=== PATIENT | female | born 1935 | race Asian ===

== ENCOUNTER 2017-07-10 11:52 | Inpatient (IN) | payer OTHER ==
[~2017-07-10] VITALS: Ht 157.5 cm; Wt 62.9 kg
[~2017-07-10 11:52] MED LIST: AMLO-147 PO; ASPI81TA50 PO; BENA20TA48 PO; ESOM40CA PO; GABA300C PO; HYDR-3672 PO; IBUP-1542 PO; LEVO88TA3 PO; VALS160T20 PO
[2017-07-10] MEDS ORDERED: ONDANSETRON 4 MG INJ IV STA (12:22)
[2017-07-10] MEDS ORDERED: CEFEPIME 2GM/50 ML (PMX) 50 ML IVPB STA (12:22)
[2017-07-10] MEDS ORDERED: SOD CHLORIDE 0.9% 1,000 ML IV ONE ×3 (12:30→18:00)
[2017-07-10] MEDS ORDERED: morphine 2 MG INJ IV ONE (12:30)
[2017-07-10] MEDS ORDERED: FURO40TA4 PO (12:46)
[2017-07-10] MEDS ORDERED: ATEN-51 PO (12:46)
[2017-07-10] MEDS ORDERED: BENA40TA41 PO (12:47)
[2017-07-10] MEDS ORDERED: VALS1TAB78 PO (12:48)
[2017-07-10] MEDS ORDERED: FURO-109 PO (12:48)
[2017-07-10 13:10] LABS: INR 0.91; PROTIME 12.3 Sec (12.2-14.2)
[2017-07-10 13:11] LABS: PARTIAL THROMBOPLASTIN TIME 29.4 Sec (25.0-35.0)
[2017-07-10 13:13] LABS: ALANINE AMINOTRANSFERASE 45 IU/L (13-69); ALBUMIN 4.1 g/dl (3.3-4.9); ALBUMIN/GLOBULIN RATIO 1.28; ALKALINE PHOSPHATASE 52 IU/L (42-121); ANION GAP 14 (8-16); ASPARTATE AMINO TRANSFERASE 75 IU/L (15-46); BILIRUBIN,INDIRECT 0.3 mg/dl (0-1.1); BILIRUBIN,TOTAL 0.3 mg/dl (0.2-1.3); BLOOD UREA NITROGEN 14 mg/dl (7-20); CARBON DIOXIDE 21 mmol/L (21-31); CHLORIDE 74 mmol/L (97-110); CREATININE 0.83 mg/dl (0.44-1.00); GLUCOSE 129 mg/dl (70-220); POTASSIUM 3.9 mmol/L (3.5-5.1); TOTAL PROTEIN 7.3 g/dl (6.1-8.1)
[2017-07-10 13:17] LABS: ABNORMAL IP MESSAGE 1; BASOPHILS % 0.1 % (0.0-2.0); EOSINOPHILS % 0.1 % (0.0-7.0); HEMATOCRIT 33.1 % (37.0-47.0); HEMOGLOBIN 12.1 g/dl (12.0-16.0); LYMPHOCYTES # 1.1 10^3/ul (0.8-2.9); LYMPHOCYTES % 6.1 % (15.0-51.0); MEAN CORPUSCULAR HGB CONC 36.6 g/dl (32.0-37.0); MEAN CORPUSCULAR VOLUME 82.1 fl (82.0-101.0); MEAN PLATELET VOLUME 9.5 fl (7.4-10.4); MONOCYTE # 1.9 10^3/ul (0.3-0.9); MONOCYTES % 10.6 % (0.0-11.0); NEUTROPHILS % 81.9 % (39.0-77.0); PLATELET COUNT 440 10^3/UL (140-415); RED BLOOD COUNT 4.03 10^6/ul (4.20-5.40); RED CELL DISTRIBUTION WIDTH 12.6 % (11.5-14.5)
[2017-07-10 13:19] LABS: SODIUM 105 mmol/L (135-144)
[2017-07-10 13:20] LABS: CREATINE KINASE 2059 IU/L (23-200); POSITIVE DIFF @See below
[2017-07-10 13:25] LABS: TROPONIN-I < 0.012 ng/ml (0.00-0.12)
--- NOTE | 2017-07-10 14:09 | RADRPT ---
PROCEDURE: XR Thoracic Spine. CLINICAL INDICATION: Back Pain. Fall. TECHNIQUE: AP and lateral views of the thoracic spine are available for review COMPARISON: None available FINDINGS: No acute fracture or dislocation is seen. The alignment is normal. The vertebral body heights are preserved. Mild intervertebral disc space narrowing throughout the thoracic spine. The normal thoracic kyphosis is present. No radiopaque foreign body is identified. The paraspinous soft tissues are unremarkable. There is 12 degrees dextroscoliosis of mid thoracic spine with apex of curvature at T8. There is atherosclerotic calcification of the aorta. Surgical mila in right upper quadrant suggest previous cholecystectomy. IMPRESSION: 1. No evidence of fracture or dislocation. 2. Mild degenerative disc disease throughout the thoracic spine. 3. Mild dextroscoliosis of the mid thoracic spine. 4. Atherosclerotic calcification of the aorta. RPTAT: QQ .Markos Jefferson MD, Date Time Electronically viewed and signed by .Markos Jefferson MD, on 07/10/2017 14:09 .M/
--- NOTE | 2017-07-10 14:22 | RADRPT ---
PROCEDURE: XR Chest. CLINICAL INDICATION: Chest pain. Fall. TECHNIQUE: Anterior chest x-ray. COMPARISON: 09/24/2014 FINDINGS: There are patchy airspace opacities in right perihilar region right lower lung zone, new compared to previous exam. The lung markings are prominent in the left lung base. Subsegmental atelectasis in the left lung base. The lungs are clear. No pleural effusion identified. There is no evidence of pneumothorax. The heart size is large. There is atherosclerotic calcification of the aorta. The cardiomediastinal silhouette is unremarkable. The soft tissues are normal. No fracture identified. IMPRESSION: 1. Patchy airspace opacity in the right lower lung zone suggesting infiltrate. 2. Subsegmental atelectasis in left lung base. 3. Cardiomegaly. 4. Atherosclerotic calcification of the aorta. 6. No evidence of fracture or pneumothorax. RPTAT: QQ .Markos Jefferson MD, MD Date Time Electronically viewed and signed by .Markos Jefferson MD, on 07/10/2017 14:22 .M/
--- NOTE | 2017-07-10 14:42 | RADRPT ---
PROCEDURE: XR Pelvis. CLINICAL INDICATION: Pain. Fall. TECHNIQUE: Single AP view of the pelvis is submitted for interpretation. COMPARISON: No prior studies are available for comparison. FINDINGS: There is no evidence of acute fracture or dislocation. The hip joints are unremarkable. The sacroiliac joints are unremarkable. No radiopaque foreign body is identified. The osseous mineralization is normal. Atherosclerotic calcifications are noted in the left femoral artery. IMPRESSION: 1. No evidence of fracture or dislocation. 2. Moderate atherosclerotic peripheral vascular disease. RPTAT: QQ .Markos Jefferson MD, MD Date Time Electronically viewed and signed by .Markos Jefferson MD, on 07/10/2017 14:42 .M/
--- NOTE | 2017-07-10 14:53 | RADRPT ---
PROCEDURE: XR Lumbar Spine. CLINICAL INDICATION: Low back pain. Fall. TECHNIQUE: Three views of the lumbar spine are available for review COMPARISON: None available FINDINGS: Anterior wedge deformity at L1 with 25% height loss anteriorly. Incomplete visualization of the cortex of the L3 vertebral body on the left side superiorly with adj acent calcific densities in the soft tissues. This may represent fracture or degenerative osteophyte s. 5 mm retrolisthesis of L2-1 L3. The normal lumbar lordosis is preserved. Surgical clips in right upper quadrant suggest previous cholecystectomy.. The intervertebral disk spaces demonstrate advanced narrowing at L1/L2 and L2/L3. Moderate disc space narrowing at L3/L4. Moderate size anterior osteophyte formations from the inferior endplate of L1 through superior endpl ate of L4. The posterior elements are unremarkable. On the frontal view, there is 10 degrees levoscoliosis of the mid lumbar spine at L2-L4. Moderate atherosclerotic calcification of the aorta. IMPRESSION: 1. Poor visualization of the superior endplate of L3 on the left side with calcific densities in th e adjacent soft tissues. This finding may represent fracture or degenerative osteophytes. Findings c an be further clarified with CT scan of the lumbar spine, if clinically indicated. 2. L1 compression fracture with 25% height loss anteriorly, age indeterminate. 3. Grade 1 retrolisthesis of L2 on L3 and L3 on L4. 4. Moderate atherosclerotic peripheral vascular disease. 5. Advanced degenerative disc disease and enthesopathy in the upper and mid lumbar spine. Previous cholecystectomy. RPTAT: QQ .Markos Jefferson MD, Date Time Electronically viewed and signed by .Markos Jefferson MD, on 07/10/2017 14:53 .M/
--- NOTE | 2017-07-10 15:02 | RADRPT ---
PROCEDURE: CT Brain without contrast. CLINICAL INDICATION: Headaches status post fall and altered mental status TECHNIQUE: A CT of the brain was performed on a GE [employer]ed 64-slice CT scanner utilizing axial imaging from the skull base through the vertex without IV contrast. Multiplanar reformatted images were made. Images were reviewed on a PACS workstation. The CTDIvol is 44.40 mGy and the DLP is 720 .23 mGycm. One of the following 3 does reduction techniques were used during this CT examination: 1) Automated exposure control 2) Adjustment of the mA +/- kV according to patient size or 3) Use of iterative reconstruction technique COMPARISON: None available FINDINGS: There is no intracranial hemorrhage, mass effect, or midline shift. No extra-axial fluid collection is seen. The ventricles and sulci are age appropriate. Mild diffuse volume loss is present. Subtle decreased attenuation is present in the bilateral subcortical white matter, bilateral centrum semiov jose, and bilateral periventricular white matter compatible with moderate chronic microvascular ische maria a disease. Decreased attenuation is present in the bilateral basal ganglia and in the right cerebe llum compatible with small lacunar type infarcts. Vascular calcifications are present of the bilater al intracranial internal carotid arteries and the vertebral basilar arteries. The visualized scalp and calvarium are normal. The orbits are remarkable for bilateral lens replacem ent. The bilateral paranasal sinuses, mastoid air cells and middle ear cavities are clear. IMPRESSION: 1. No evidence of acute intracranial intracranial hemorrhage, infarcts, or acute intracranial patho logy. 2. Moderate chronic microvascular ischemic disease and mild diffuse volume loss. 3. 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 4. Moderate atherosclerotic vascular disease RPTAT: HDC .Heidi Tellez MD, MD Date Time Electronically viewed and signed by .Heidi Tellez MD, MD on 07/10/2017 15:02 .C/
--- NOTE | 2017-07-10 15:06 | RADRPT ---
PROCEDURE: CT cervical spine without contrast. CLINICAL INDICATION: Abdominal Pain TECHNIQUE: CT scan of the cervical spine without contrast was performed and is reconstructed at 1. 25 mm contiguous axial intervals .. The patient was scanned without intravenous contrast. Sagittal and coronal reformatted images were obtained from the axial source images. The calculated radiation dose measures 522 mGy centimeters. The CTDI measures 22 mGy. Individualized dose optimization technique was used for the performance of this exam. This included 1. Automated exposure control. 2. Adjustment of the mA and / or kV according to the patient's size. 3. Use of iterative reconstructed technique. COMPARISON: None. FINDINGS: There is loss of normal lordosis with mild kyphotic deformity centered on C4. No step-off or prevert ebral soft tissue swelling is visualized. Vertebral bodies have normal height. No fracture is identi fied. There is degenerative narrowing of C3-C4, C4-C5 and C5-C6. The disc heights are maintained. Th ere is posterior ridging at an C3-C4. Noted is a central disc herniation at C4-C5 measuring 4 mm in AP diameter. No other disc herniation is present. Pedicles and posterior elements are without eviden ce of fracture. There is multilevel bilateral foraminal stenosis secondary to uncinate process osteo phytes. There is soft tissue hematoma is present. IMPRESSION: Degenerative changes cervical spine as above. Kyphotic deformity centered on C4. No fracture or step -off. .Philip Lea MD, Date Time Electronically viewed and signed by .Philip Lea MD, MD on 07/10/2017 15:06 .A/
[2017-07-10 16:11] LABS: ADD UMIC YES; UR ASCORBIC ACID NEGATIVE (NEGATIVE); UR BILIRUBIN (Dip) NEGATIVE (NEGATIVE); UR BLOOD (Dip) NEGATIVE (NEGATIVE); UR CLARITY CLEAR (CLEAR); UR COLOR YELLOW (YELLOW); UR GLUCOSE (Dip) 1+ mg/dL (NEGATIVE); UR KETONES (Dip) TRACE mg/dL (NEGATIVE); UR LEUKOCYTE ESTERASE (Dip) TRACE Leu/ul (NEGATIVE); UR NITRITE (Dip) NEGATIVE (NEGATIVE); UR RBC 1 /HPF (0-5); UR TOTAL PROTEIN (Dip) 2+ mg/dl (NEGATIVE); UR UROBILINOGEN (Dip) NEGATIVE (NEGATIVE)
[2017-07-10] MEDS ORDERED: ONDANSETRON 4 MG INJ IV PRN ×2 (16:30→22:30)
[2017-07-10] MEDS ORDERED: ACETAMINOPHEN 325 MG TAB PO PRN ×2 (16:30→22:30)
[2017-07-10 16:46] VITALS: TEMP 98.4
--- NOTE | 2017-07-10 18:19 | ERA ---
ER Documentation Chief Complaint Date/Time DATE: 07/10/17 TIME: 18:00 Chief Complaint found down at home c/o weakness being treated for uti HPI This 82-year-old female is brought in to the emergency room along with her daughter for being very weak at home for the last few days. She was found by family today on the ground where she said she fell last night had not been able to get up since.She has been slightly confused. She has had decreased p.o. intake.Was diagnosed with a UTI 1 week ago. Has had chills but not had fever. She has had no seizures or focal neurological symptoms just for generalized weakness. Denies nausea denies and vomit. Patient states that except for feeling tired she feels all right. No chest pain or shortness of breath. ROS All systems reviewed and are negative except as per history of present illness. Medications Home Meds Reported Medications Furosemide* (Lasix*) 40 Mg Tablet, 40 MG PO DAILY, TAB 07/10/17 Valsartan-Hydrochlorothiazide (Valsartan-HCTZ) 160-25 Mg Tablet, 1 TAB PO DAILY , #30 TAB 07/10/17 Benazepril Hcl* (Benazepril Hcl*) 40 Mg Tablet, 40 MG PO DAILY, #30 TAB 07/10/17 Atenolol* (Atenolol*) 25 Mg Tablet, 25 MG PO DAILY, #30 TAB 07/10/17 Furosemide* (Furosemide*) 40 Mg Tablet, 40 MG PO DAILY, TAB 07/10/17 Hydralazine Hcl* (Hydralazine Hcl*) 50 Mg Tablet, 50 MG PO Q8, TAB 08/17/14 Amlodipine Besylate* (Amlodipine Besylate*) 10 Mg Tablet, 10 MG PO DAILY, TAB 08/17/14 Levothyroxine Sodium* (Levothyroxine Sodium*) 88 Mcg Tablet, 88 MCG PO DAILY, TAB 08/17/14 Aspirin (Aspir-Low) 81 Mg Tablet.dr, 81 MG PO DAILY 08/17/14 Discontinued Reported Medications Gabapentin* (Neurontin*) 300 Mg Capsule, 300 MG PO HS, CAP 08/17/14 Benazepril Hcl* (Benazepril Hcl*) 20 Mg Tablet, 20 MG PO DAILY, TAB 08/17/14 Valsartan* (Diovan*) 160 Mg Tablet, 160 MG PO DAILY, TAB 08/17/14 Discontinued Scripts Esomeprazole Mag Trihydrate (Nexium) 40 Mg Capsule.dr, 40 MG PO DAILY for gastritis, #60 CAP Prov:RAQUEL CORNELIUS MD 09/26/14 Ibuprofen* (Ibuprofen*) 600 Mg Tablet, 600 MG PO Q8 for SEVERE PAIN LEVEL 7-10, #30 TAB Prov:RAQUEL CORNELIUS MD 09/26/14 Allergies Allergies: Coded Allergies: No Known Allergies (Verified Allergy, Unknown, 07/10/17) PMhx/Soc History of Surgery: Yes (gall stone removal) Anesthesia Reaction: No Hx Neurological Disorder: No Hx Respiratory Disorders: No Hx Cardiac Disorders: Yes (HTN) Hx Psychiatric Problems: No Hx Miscellaneous Medical Probl: No Hx Alcohol Use: No Hx Substance Use: No Hx Tobacco Use: No Smoking Status: Never smoker Physical Exam Vitals Vital Signs Date Time Temp Pulse Resp B/P Pulse Ox O2 Delivery O2 Flow Rate FiO2 07/10/17 17:46 54 16 114/74 98 07/10/17 16:46 98.4 61 15 116/72 99 Room Air 07/10/17 12:35 Nasal Cannula 2 07/10/17 12:31 98.4 61 26 140/98 100 Physical Exam Const: [] Appears uncomfortable Head: Atraumatic Eyes: Normal Conjunctiva, EOMI, PERRLA, no nystagmus ENT: Normal External Ears, Nose and Mouth.Dry mucous membranes of the mouth. Neck: Full range of motion..~ No meningismus. Resp: Clear to auscultation bilaterally, Tachypnea with respiratory rate of about 30. Cardio: Regular rate and rhythm, no murmurs Abd: Soft, non tender, non distended. Normal bowel sounds Skin: No petechiae or rashes Back: No midline or flank tenderness Ext: No cyanosis, or edema Neur: Awake and alertAnd oriented 3, cranial nerves II through XII intact, no cerebellar deficits. Psych: Normal Mood and Affect Result Diagram: 07/10/17 1230 07/10/17 1600 Results 24 hrs Laboratory Tests Test 07/10/17 12:30 07/10/17 12:36 07/10/17 15:30 07/10/17 16:00 White Blood Count 18.010^3/ul Red Blood Count 4.0310^6/ul Hemoglobin 12.1g/dl Hematocrit 33.1% Mean Corpuscular Volume 82.1fl Mean Corpuscular Hemoglobin 30.0pg Mean Corpuscular Hemoglobin Concent 36.6g/dl Red Cell Distribution Width 12.6% Platelet Count 94025^3/UL Mean Platelet Volume 9.5fl Neutrophils % 81.9% Lymphocytes % 6.1% Monocytes % 10.6% Eosinophils % 0.1% Basophils % 0.1% Nucleated Red Blood Cells % 0.0/100WBC Neutrophils # (Manual) 14.710^3/ul Lymphocytes # 1.110^3/ul Monocytes # 1.910^3/ul Eosinophils # 0.010^3/ul Basophils # 0.010^3/ul Nucleated Red Blood Cells # 0.010^3/ul Prothrombin Time 12.3Sec Prothrombin Time Ratio 1.0 INR International Normalized Ratio 0.91 Activated Partial Thromboplast Time 29.4Sec Sodium Level 105mmol/L 109mmol/L Potassium Level 3.9mmol/L Chloride Level 74mmol/L Carbon Dioxide Level 21mmol/L Anion Gap 14 Blood Urea Nitrogen 14mg/dl Creatinine 0.83mg/dl Glucose Level 129mg/dl Calcium Level 9.0mg/dl Total Bilirubin 0.3mg/dl Direct Bilirubin 0.00mg/dl Indirect Bilirubin 0.3mg/dl Aspartate Amino Transf (AST/SGOT) 75IU/L Alanine Aminotransferase (ALT/SGPT) 45IU/L Alkaline Phosphatase 52IU/L Creatine Kinase 2059IU/L Creatine Kinase Index 1.3 Creatinine Kinase MB (Mass) 26.50ng/ml Troponin I < 0.012ng/ml Total Protein 7.3g/dl Albumin 4.1g/dl Globulin 3.20g/dl Albumin/Globulin Ratio 1.28 Lactic Acid Level 2.6mmol/L 1.9mmol/L Urine Color YELLOW Urine Clarity CLEAR Urine pH 6.0 Urine Specific [place] 1.010 Urine Ketones TRACEmg/dL Urine Nitrite NEGATIVEmg/dL Urine Bilirubin NEGATIVEmg/dL Urine Urobilinogen NEGATIVEmg/dL Urine Leukocyte Esterase TRACELeu/ul Urine Microscopic RBC 1/HPF Urine Microscopic WBC 2/HPF Urine Hemoglobin NEGATIVEmg/dL Urine Glucose 1+mg/dL Urine Total Protein 2+mg/dl Current Medications Medications (Trade) Dose Ordered Sig/Zak Route PRN Reason Start Time Stop Time Status Last Admin Dose Admin Cefepime HCl 50 ml @ 100 mls/hr ONCE STAT IVPB 07/10/17 12:22 07/10/17 12:51 DC 07/10/17 13:07 Sodium Chloride 1,000 ml @ 1,000 mls/hr Q1H ONCE IV 07/10/17 12:30 07/10/17 13:29 DC 07/10/17 12:47 Sodium Chloride (NS) 1,000 ml @ 1,000 mls/hr Q1H ONCE IV 07/10/17 12:30 07/10/17 13:29 DC 07/10/17 13:07 Morphine Sulfate (morphine) 2 mg ONCE ONCE IV 07/10/17 12:30 07/10/17 12:31 DC 07/10/17 12:47 Ondansetron HCl (Zofran Inj) 4 mg ONCE STAT IV 07/10/17 12:22 07/10/17 12:29 DC 07/10/17 12:47 Ondansetron HCl (Zofran Inj) 4 mg ER BRIDGE PRN IV NAUSEA AND/OR VOMITING 07/10/17 16:30 07/11/17 16:29 Acetaminophen 650 mg 650 mg ER BRIDGE PRN PO MILD PAIN/FEVER 07/10/17 16:30 07/11/17 16:29 Sodium Chloride (NS) 1,000 ml @ 1,000 mls/hr Q1H ONCE IV 07/10/17 18:00 07/10/17 18:59 Procedures/MDM Critically severe hyponatremia as well as pneumonia with sepsis. No neurological deficits yet. Patient has no EKG changes related to hyponatremia. Wide-complex is only related to the right bundle branch block. ..Urinalysis weakly positive on the patient had been on antibiotics for her UTI. She has elevated white blood cell count as well as lactic acid with increased respiratory rate. She was hydrated with 3 L total of normal saline. Hyponatremia as probable etiology of hypovolemia.Patient also has elevated CK likely secondary to being on the floor all day on the floor all night. No signs of renal dysfunction yet. She is being well hydrated in the emergency room to prevent rhabdomyolysis.. After hydration patient stated she was feeling better. Respiratory rate is improving. No signs of cardiac ischemia. Spoke with Dr. Herman about possible ICU admission. He prefers the patient be admitted to telemetry. Currently her vital signs are stabilized. EKG interpretation: Sinus bradycardia rate of 54, first-degree AV block, right bundle branch block, left axis deviation, no ST or T-wave changes concerning for acute ischemia. 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 Head CT interpretation: I see no acute process. I see no hemorrhage, no mass- effect or midline shift, no skull fractures CT C-spine interpretation: Degenerative joint disease without acute fracture dislocation Thoracic spine x-ray interpretation: Multilevel degenerative joint disease without acute fracture dislocation L-spine x-ray interpretation: L1 mild compression fracture, degenerative joint disease, Pelvis x-ray interpretation: I see no acute fracture dislocati . Critical care time greater than 35 minutes excluding billable procedures: This includes monitored during a patient with severe actual electrolyte abnormalities and severe hyponatremia with confusion, concern for rhabdomyolysis , treatment of unstable vital signs with high respiratory rate and respiratory distress likely secondary to pneumonia, antibiotic administration, very careful fluid administration, chart review, discussion with family and patient as well as admitting doctor. Departure Diagnosis: Primary Impression: Hyponatremia syndrome Additional Impressions: Dehydration Sepsis due to pneumonia Lactic acidosis Respiratory distress Elevated CK Condition: Critical DEDRA WHITE DO Jul 10, 2017 18:11
[2017-07-10 20:20] VITALS: BP 130/65; RESP 18
[2017-07-10 20:52] VITALS: PULSE 45
[2017-07-10 21:48] VITALS: PULSE 40
--- NOTE | 2017-07-10 21:55 | QN ---
Documentation Comment H&P dict a/p 1. hypoNa, likely dehydration exacerbated by lasix/hctz, consider component of SIADH in light of pulm infiltrate 2. pulm: probaLBE RLL PNA, rx abx 3. partially treated uti 4. proph: NAZANIN Hall MD Jul 10, 2017 21:55
[2017-07-10] MEDS ORDERED: VANCOMYCIN IV PER PHARMACY XX SCH (22:30)
[2017-07-10] MEDS ORDERED: morphine 2 MG INJ IV PRN (22:30)
--- NOTE | 2017-07-10 22:33 | HP ---
DATE OF ADMISSION: 07/10/2017 CHIEF COMPLAINT: Generalized weakness. HISTORY OF PRESENT ILLNESS: Patient presents to the emergency room at [facility] after being found on the floor at her apartment, not answering the phone, unable to stand up or walk. Patient had been feeling weak since Tuesday when she saw her primary care doctor and was diagnosed with a urinary tract infection and prescribed antibiotics. However, her weakness became progressively worse to the point where she was unable to ambulate and was brought here to the emergency room. PAST MEDICAL HISTORY: Significant for hypothyroidism and hypertension. MEDICATION: As an outpatient include: 1. Norvasc 10 mg daily. 2. Atenolol 25 mg daily. 3. Benazepril 40 mg daily. 4. Hydralazine 50 mg q.8 hours. 5. Diovan/HCTZ 160/25 tablet daily. 6. Aspirin 81 mg daily. 7. Lasix 40 mg daily. 8. Levothyroxine 0.088 mg daily. ALLERGIES: NO KNOWN DRUG ALLERGIES. SOCIAL HISTORY: Patient lives at home in [place] by herself. She takes the bus to the various shops which she is able to walk to with no problems. She does all her own cooking and shopping in usual circumstances. She denies tobacco, alcohol, illicit drug use. FAMILY HISTORY: Noncontributory. REVIEW OF SYSTEMS: Five systems reviewed and found not to be revealing. PHYSICAL EXAMINATION: VITAL SIGNS: Blood pressure is 142/66, pulse rate 53, respirations 18, temperature is 98.4, satting 98 percent on room air. GENERAL APPEARANCE: In general, pleasant, elderly woman, somewhat lethargic and slow to answer and is arousable, but not alert during the interview. HEENT: Normocephalic, atraumatic. Without any scleral icterus, perioral cyanosis. Mucous membranes are dry. NECK: Soft and supple, without masses. No evidence of jugular venous distention. No carotid bruits. CHEST: Clear to auscultation and percussion bilaterally. HEART: Regular rate and rhythm. S1-S2. No added sounds. ABDOMEN: Soft, nontender, nondistended, without palpable hepatosplenomegaly. EXTREMITIES: Without clubbing, cyanosis, or edema. SKIN: Without rashes. NEUROLOGIC: Grossly intact. LABORATORY STUDIES: Reveal a hemoglobin 12.1 g/dL, white count of 18,000, platelets of 440,000. INR is 1.0, sodium 105, potassium 3.9, chloride 74, bicarbonate 21, BUN 14, creatinine 0.83. Glucose 129. Liver function tests remarkable only for an AST of 75, total creatine kinase is 2059. Repeat sodium after 2- 3 L of fluid shows 109. UA shows 2+ protein, trace esterase, only [address] scan of brain shows chronic microvascular changes. Chest x-ray does show a patchy right lower lobe infiltrate. Cervical spine shows some spinal stenosis at the C4 region related to disc protrusion and osteoarthritis. ASSESSMENT AND PLAN: 1. Hyponatremia. This is likely multifactorial. I suspect there is a component of dehydration and hypovolemia. I suspect there is a component of diuretics contributing. I suspect also a component of possible SIADH in light of the patient's pulmonary infiltrates. We will attempt to hydrate at this time and see how much sodium improves with hydration. When is appears she is euvolemic, fluid restriction may be necessary at that point in time. 2. Pulmonary: Patient with right lower lobe infiltrate. Begin antibiotics with vancomycin, Rocephin and azithromycin. This should also cover any urinary tract infection, which may be present. 3. Hypertension will hold atenolol in light of the relative bradycardia at this time. 4. Prophylaxis with Lovenox. Dictated By: Glenroy Shearer MD /edgar/andi /Document#: [id number]
[2017-07-10] MEDS: SOD CHLORIDE 0.9% 1,000 ML IV SCH (22:39)
[2017-07-10] MEDS: CEFTRIAXONE 1 GM/50 ML (PMX) 50 ML IVPB SCH (23:21)
[2017-07-10] MEDS: AZITHROMYCIN 500MG/NS (PMX) 250 ML IVPB SCH (23:26)
[2017-07-11] VITALS (13 sets, daily range): BP systolic 103–130; BP diastolic 53–70; PULSE 43–66; RESP 16–18; Ht 157.5 cm; Wt 62.9 kg
[2017-07-11] MEDS ORDERED: VANCOMYCIN 1.25 GM in SOD CHLORIDE 0.9% 250 ML IVPB SCH ×2
[2017-07-11] MEDS: CEFTRIAXONE 1 GM/50 ML (PMX) 50 ML IVPB SCH ×2 (00:25→23:02)
[2017-07-11] MEDS: LEVOTHYROXINE 88 MCG TAB PO SCH (06:00)
[2017-07-11 07:52] LABS: ABNORMAL IP MESSAGE 1; BASOPHILS % 0.1 % (0.0-2.0); EOSINOPHILS % 0.2 % (0.0-7.0); HEMATOCRIT 29.7 % (37.0-47.0); HEMOGLOBIN 10.6 g/dl (12.0-16.0); LYMPHOCYTES # 1.3 10^3/ul (0.8-2.9); LYMPHOCYTES % 9.4 % (15.0-51.0); MEAN CORPUSCULAR HGB CONC 35.7 g/dl (32.0-37.0); MEAN CORPUSCULAR VOLUME 84.1 fl (82.0-101.0); MEAN PLATELET VOLUME 9.8 fl (7.4-10.4); MONOCYTE # 2.1 10^3/ul (0.3-0.9); MONOCYTES % 15.1 % (0.0-11.0); NEUTROPHILS % 74.6 % (39.0-77.0); PLATELET COUNT 409 10^3/UL (140-415); RED BLOOD COUNT 3.53 10^6/ul (4.20-5.40); RED CELL DISTRIBUTION WIDTH 12.7 % (11.5-14.5); WHITE BLOOD COUNT 13.9 10^3/ul (4.8-10.8)
[2017-07-11 07:55] LABS: POSITIVE DIFF @See below
[2017-07-11] MEDS: ASPIRIN (EC) 81 MG TAB PO SCH (08:08)
[2017-07-11] MEDS: ENOXAPARIN 40 MG/0.4 ML SYG SC SCH (08:09)
[2017-07-11] MEDS: SOD CHLORIDE 0.9% 1,000 ML IV SCH (08:10)
[2017-07-11] MEDS: AMLODIPINE 10 MG TAB PO SCH (08:10)
[2017-07-11 08:42] LABS: CREATININE 0.81 mg/dl (0.44-1.00); POTASSIUM 3.3 mmol/L (3.5-5.1)
[2017-07-11] MEDS ORDERED: POTASSIUM CHLORIDE (SR) 20 MEQ TAB PO STA (11:51)
--- NOTE | 2017-07-11 12:06 | PN ---
Date/Time of Note Date/Time of Note DATE: 07/11/17 TIME: 11:42 Assessment/Plan VTE Prophylaxis VTE Prophylaxis Intervention: LMWH Lines/Catheters IV C[facility]ter Type (from [facility]): Peripheral IV Urinary Cath still in place: Yes Reason Cath still needed: other (indicate) (Monitor urine output) Assessment/Plan Assessment/Plan 82-year-old female with: 1. Severe symptomatic hyponatremia, sodium at 105 on admission, likely secondary to hypovolemia, patient was on multiple medications including diuretics and she may have an underlying pneumonia. She has been on IV fluids and sodium has risen appropriately up to 123 today. Continue current IV fluids. Check thyroid function testing if not done yet. Will adjust her IV fluids to account also for hypokalemia. Check magnesium level stat. Speech evaluation Physical therapy evaluation Blood pressure control 2. Right lower lobe infiltrate, pneumonia, likely community-acquired pneumonia , therefore agree with azithromycin and Rocephin. D/C vancomycin. Lactic acid within normal, 3. ? UTI, follow-up on urine cultures so far NGTD, current antibiotics especially Rocephin enough for UTI coverage. 4. Hypertension: Continue current Norvasc and hydralazine. Atenolol has been discontinued due to episodes of bradycardia down to 49 overnight. We will resume ENRRIQUE inhibitors since renal function within normal, only use hydralazine as needed. Blood pressure much better controlled today. 5. Hypothyroidism, status post thyroidectomy at age 66: In light of electrolyte imbalance, will check thyroid function testing, continue current Synthroid dosing and further adjustments as needed. Prophylaxis: DVT prophylaxis with Lovenox. Pepcid for GI prophylaxis Disposition: Monitor sodium level, speech therapy evaluation, physical therapy evaluation. Antibiotic adjustment. Hopefully discharge planning in the next 24 -48 hours. Subjective 24 Hr Interval Summary Free Text/Dictation Patient much better today. She is awake alert, able to give her history, she complains of sore throat/dry throat otherwise has been able to swallow water. Speech evaluation and physical therapy evaluation pending. Repleting electrolytes. Exam/Review of Systems Vital Signs Vitals Vital Signs Date Time Temp Pulse Resp B/P Pulse Ox O2 Delivery O2 Flow Rate FiO2 07/11/17 11:10 98.2 68 16 119/56 96 07/10/17 19:30 Room Air 07/10/17 12:35 2 Intake and Output 07/10/17 07/10/17 07/11/17 15:00 23:00 07:00 Output Total 2600 ml Balance -2600 ml Exam Constitutional: alert, oriented, well developed Respiratory: clear to auscultation, normal air movement Cardiovascular: nl pulses, regular rate and rhythm Gastrointestinal: non-tender, soft Musculoskeletal: nl extremities to inspection Extremities: normal pulses, other (No edema, clubbing or cyanosis) Neurological: BOARD SAW RUNNER II-XII intact, nl mental status, nl speech, nl strength Results Result Diagram: 07/11/17 0634 07/11/17 0634 Results 24 hrs Laboratory Tests Test 07/10/17 12:30 07/10/17 12:36 07/10/17 15:30 07/10/17 16:00 White Blood Count 18.0 #H Red Blood Count 4.03 L Hemoglobin 12.1 Hematocrit 33.1 L Mean Corpuscular Volume 82.1 Mean Corpuscular Hemoglobin 30.0 Mean Corpuscular Hemoglobin Concent 36.6 Red Cell Distribution Width 12.6 Platelet Count 440 H Mean Platelet Volume 9.5 Neutrophils % 81.9 H Lymphocytes % 6.1 L Monocytes % 10.6 Eosinophils % 0.1 Basophils % 0.1 Nucleated Red Blood Cells % 0.0 Neutrophils # (Manual) 14.7 H Lymphocytes # 1.1 Monocytes # 1.9 H Eosinophils # 0.0 Basophils # 0.0 Nucleated Red Blood Cells # 0.0 Prothrombin Time 12.3 Prothrombin Time Ratio 1.0 INR International Normalized Ratio 0.91 Activated Partial Thromboplast Time 29.4 Sodium Level 105 *L 109 *L Potassium Level 3.9 Chloride Level 74 L Carbon Dioxide Level 21 Anion Gap 14 Blood Urea Nitrogen 14 Creatinine 0.83 Glucose Level 129 Calcium Level 9.0 Total Bilirubin 0.3 Direct Bilirubin 0.00 Indirect Bilirubin 0.3 Aspartate Amino Transf (AST/SGOT) 75 H Alanine Aminotransferase (ALT/SGPT) 45 Alkaline Phosphatase 52 Creatine Kinase 2059 H Creatine Kinase Index 1.3 Creatinine Kinase MB (Mass) 26.50 H Troponin I < 0.012 Total Protein 7.3 Albumin 4.1 Globulin 3.20 Albumin/Globulin Ratio 1.28 Lactic Acid Level 2.6 *H 1.9 Urine Color YELLOW Urine Clarity CLEAR Urine pH 6.0 Urine Specific [place] 1.010 Urine Ketones TRACE A Urine Nitrite NEGATIVE Urine Bilirubin NEGATIVE Urine Urobilinogen NEGATIVE Urine Leukocyte Esterase TRACE A Urine Microscopic RBC 1 Urine Microscopic WBC 2 Urine Hemoglobin NEGATIVE Urine Glucose 1+ H Urine Total Protein 2+ H Test 07/10/17 21:32 07/11/17 06:34 Sodium Level 113 *L 123 L Lactic Acid Level 1.2 White Blood Count 13.9 #H Red Blood Count 3.53 L Hemoglobin 10.6 L Hematocrit 29.7 L Mean Corpuscular Volume 84.1 Mean Corpuscular Hemoglobin 30.0 Mean Corpuscular Hemoglobin Concent 35.7 Red Cell Distribution Width 12.7 Platelet Count 409 Mean Platelet Volume 9.8 Neutrophils % 74.6 Lymphocytes % 9.4 L Monocytes % 15.1 H Eosinophils % 0.2 Basophils % 0.1 Nucleated Red Blood Cells % 0.0 Neutrophils # (Manual) 10.3 H Lymphocytes # 1.3 Monocytes # 2.1 H Eosinophils # 0.0 Basophils # 0.0 Nucleated Red Blood Cells # 0.0 Potassium Level 3.3 L Chloride Level 95 #L Carbon Dioxide Level 20 L Anion Gap 11 Blood Urea Nitrogen 10 Creatinine 0.81 Glucose Level 82 # Calcium Level 8.0 L Medications Medications Current Medications Amlodipine Besylate (Norvasc) 10 mg DAILY PO Last administered on 07/11/17 08: 10; Admin Dose 10 MG; Start 07/11/17 at 09:00 Aspirin (Halfprin) 81 mg DAILY PO Last administered on 07/11/17 08:08; Admin Dose 81 MG; Start 07/11/17 at 09:00 Hydralazine HCl (Apresoline) 50 mg Q8 PO Last administered on 07/11/17 06:12; Admin Dose 50 MG; Start 07/11/17 at 06:00 Levothyroxine Sodium 88 mcg 88 mcg DAILY@06 PO ; Start 07/11/17 at 06:00 Ceftriaxone Sodium 50 ml @ 100 mls/hr Q24H IVPB Last administered on 00:25; Admin Dose 100 MLS/HR; Start 07/10/17 at 23:30 Azithromycin (Zithromax 500mg/ NS (Pmx)) 250 ml @ 250 mls/hr Q24H IVPB Last administered on 07/10/17 23:26; Admin Dose 250 MLS/HR; Start 07/10/17 at 23:00 Acetaminophen (Tylenol Tab) 650 mg Q4H PRN PO PAIN AND OR ELEVATED TEMP; Start 07/10/17 at 22:30 Ondansetron HCl (Zofran Inj) 4 mg Q4H PRN IV NAUSEA AND/OR VOMITING; Start 08/16 at 22:30 Morphine Sulfate (morphine) 2 mg Q2H PRN IV pain; Start 07/10/17 at 22:30 Enoxaparin Sodium 40 mg 40 mg DAILY SC Last administered on 07/11/17 08:09; Admin Dose 40 MG; Start 07/11/17 at 09:00 Sodium Chloride 1,000 ml @ 125 mls/hr Q8H IV Last administered on 07/11/17 08 :10; Admin Dose 125 MLS/HR; Start 07/10/17 at 22:30 Vancomycin HCl/ Sodium Chloride (Vancocin/NS) 150 ml @ 75 mls/hr Q24H IVPB ; Start 07/12/17 at 01:00 MOY DAMON Jul 11, 2017 11:52
[2017-07-11] MEDS ORDERED: MAGNESIUM SULFATE 2 GM/50 ML 50 ML IVPB ONE (13:30)
[2017-07-11] MEDS: traMADol 50 MG TAB PO PRN ×2 (13:42→21:17)
[2017-07-11] MEDS: NS + KCL 20 MEQ 1,000 ML IV SCH ×2 (17:30→22:29)
[2017-07-11 17:34] LABS: CALCIUM 8.2 mg/dl (8.4-10.2); CREATININE 0.82 mg/dl (0.44-1.00)
[2017-07-11] MEDS: AZITHROMYCIN 500MG/NS (PMX) 250 ML IVPB SCH (22:29)
[2017-07-12] VITALS (11 sets, daily range): BP systolic 128–164; BP diastolic 58–72; PULSE 65–78; RESP 16–18
[2017-07-12] MEDS ORDERED: VANCOMYCIN 750 MG in SOD CHLORIDE 0.9% 150 ML IVPB SCH (01:00)
[2017-07-12] MEDS: NS + KCL 20 MEQ 1,000 ML IV SCH (02:00)
[2017-07-12] MEDS: LEVOTHYROXINE 88 MCG TAB PO SCH (05:40)
[2017-07-12 07:44] LABS: ABNORMAL IP MESSAGE 1; BASOPHIL # 0.1 10^3/ul (0.0-0.1); BASOPHILS % 0.4 % (0.0-2.0); EOSINOPHILS % 0.3 % (0.0-7.0); HEMATOCRIT 33.2 % (37.0-47.0); HEMOGLOBIN 11.3 g/dl (12.0-16.0); LYMPHOCYTES # 1.7 10^3/ul (0.8-2.9); LYMPHOCYTES % 14.1 % (15.0-51.0); MEAN CORPUSCULAR HEMOGLOBIN 29.7 pg (29.0-33.0); MEAN CORPUSCULAR VOLUME 87.1 fl (82.0-101.0); MEAN PLATELET VOLUME 9.8 fl (7.4-10.4); MONOCYTE # 1.7 10^3/ul (0.3-0.9); MONOCYTES % 13.8 % (0.0-11.0); NEUTROPHILS % 70.8 % (39.0-77.0); PLATELET COUNT 460 10^3/UL (140-415); RED BLOOD COUNT 3.81 10^6/ul (4.20-5.40); RED CELL DISTRIBUTION WIDTH 13.4 % (11.5-14.5); WHITE BLOOD COUNT 12.3 10^3/ul (4.8-10.8)
[2017-07-12 07:45] LABS: POSITIVE DIFF @See below
[2017-07-12 08:16] LABS: ALBUMIN 3.1 g/dl (3.3-4.9); ALBUMIN/GLOBULIN RATIO 1.1; BILIRUBIN,INDIRECT 0.2 mg/dl (0-1.1); BILIRUBIN,TOTAL 0.2 mg/dl (0.2-1.3); CALCIUM 8.5 mg/dl (8.4-10.2); CREATININE 0.73 mg/dl (0.44-1.00); POTASSIUM 4.5 mmol/L (3.5-5.1); TOTAL PROTEIN 5.9 g/dl (6.1-8.1)
[2017-07-12 08:46] LABS: MAGNESIUM 2.5 mg/dl (1.7-2.5); PHOSPHORUS 1.8 mg/dl (2.5-4.9)
[2017-07-12] MEDS: ASPIRIN (EC) 81 MG TAB PO SCH (09:14)
[2017-07-12] MEDS: AMLODIPINE 10 MG TAB PO SCH (09:15)
[2017-07-12] MEDS: ENOXAPARIN 40 MG/0.4 ML SYG SC SCH (09:18)
[2017-07-12] MEDS: SOD CHLORIDE 0.9% 1,000 ML IV SCH ×2 (12:17→21:15)
--- NOTE | 2017-07-12 13:42 | PN ---
Date/Time of Note Date/Time of Note DATE: 07/12/17 TIME: 13:28 Assessment/Plan VTE Prophylaxis VTE Prophylaxis Intervention: LMWH Lines/Catheters IV Catheter Type (from [facility]): Peripheral IV Urinary Cath still in place: Yes Reason Cath still needed: other (indicate) (Discontinue) Assessment/Plan Assessment/Plan 82-year-old female with: 1. Severe symptomatic hyponatremia, sodium at 105 on admission, likely secondary to hypovolemia, patient was on multiple medications including diuretics and she may have an underlying pneumonia. She has been on IV fluids and sodium has risen appropriately up to 127 today. Continue current IV fluids. TFTs slightly abnormal but patient on Synthroid unclear if she was compliant with it before. Continue current dosing and repeat thyroid function testing in 4-6 weeks. Continue physical therapy likely to need correction facility placement short-term. Blood pressure controlled 2. Right lower lobe infiltrate, pneumonia, likely community-acquired pneumonia , therefore agree with azithromycin and Rocephin. D/C vancomycin. Lactic acid within normal, likely to be discharged to correction facility if the case she will be discharged on azithromycin p.o. and Rocephin IV for 5 more days community-acquired pneumonia 3. ? UTI, follow-up on urine cultures so far NGTD, current antibiotics especially Rocephin enough for UTI coverage. 4. Hypertension: Continue current Norvasc and hydralazine. Atenolol has been discontinued due to episodes of bradycardia down to 49 overnight. Continue ENRRIQUE inhibitors since renal function within normal, only use hydralazine as needed. Blood pressure much better controlled today. 5. Hypothyroidism, status post thyroidectomy at age 66: Slightly abnormal TFTs , continue current dose of Synthroid and recheck TFTs in 4-6 weeks. 6. Mild rhabdomyolysis: Likely secondary to fall at home, patient total CK is trending down. Continue IV fluids, recheck total CK in a.m. Renal function within normal. Prophylaxis: DVT prophylaxis with Lovenox. Pepcid for GI prophylaxis Disposition: Monitor sodium level, discharge planning to correction facility in the next 24 hours. Subjective 24 Hr Interval Summary Free Text/Dictation Patient feels better, sodium appropriately increasing up to 127 today. On normal saline. Blood pressure controlled Electrolytes repleted. Physical therapy consulted, will have a correction facility discharge planning in the next 24 hours likely. Exam/Review of Systems Vital Signs Vitals Vital Signs Date Time Temp Pulse Resp B/P Pulse Ox O2 Delivery O2 Flow Rate FiO2 07/12/17 12:29 68 07/12/17 11:17 97.7 16 130/59 93 07/10/17 19:30 Room Air 07/10/17 12:35 2 Intake and Output 07/11/17 07/11/17 07/12/17 14:59 22:59 06:59 Intake Total 1250 ml 2000 ml Output Total 1800 ml 1200 ml Balance -550 ml 800 ml Exam Constitutional: alert, frail, oriented Respiratory: clear to auscultation, normal air movement Cardiovascular: nl pulses, regular rate and rhythm Gastrointestinal: non-tender, soft Musculoskeletal: nl extremities to inspection Extremities: normal pulses, other (No edema, clubbing or cyanosis) Neurological: NATURAL FABRICATOR II-XII intact, nl mental status, nl speech, nl strength Results Result Diagram: 07/12/17 0639 07/12/17 0639 Results 24 hrs Laboratory Tests Test 07/11/17 14:28 07/11/17 16:45 07/12/17 06:39 Creatine Kinase 930 #H 569 H Sodium Level 125 L 127 L Potassium Level 4.0 4.5 Chloride Level 99 101 Carbon Dioxide Level 20 L 19 L Anion Gap 10 12 Blood Urea Nitrogen 8 6 L Creatinine 0.82 0.73 Glucose Level 98 86 Calcium Level 8.2 L 8.5 White Blood Count 12.3 H Red Blood Count 3.81 L Hemoglobin 11.3 L Hematocrit 33.2 L Mean Corpuscular Volume 87.1 Mean Corpuscular Hemoglobin 29.7 Mean Corpuscular Hemoglobin Concent 34.0 Red Cell Distribution Width 13.4 Platelet Count 460 H Mean Platelet Volume 9.8 Neutrophils % 70.8 Lymphocytes % 14.1 L Monocytes % 13.8 H Eosinophils % 0.3 Basophils % 0.4 Nucleated Red Blood Cells % 0.0 Neutrophils # (Manual) 8.7 H Lymphocytes # 1.7 Monocytes # 1.7 H Eosinophils # 0.0 Basophils # 0.1 Nucleated Red Blood Cells # 0.0 Phosphorus Level 1.8 L Magnesium Level 2.5 Total Bilirubin 0.2 Direct Bilirubin 0.00 Indirect Bilirubin 0.2 Aspartate Amino Transf (AST/SGOT) 50 H Alanine Aminotransferase (ALT/SGPT) 48 Alkaline Phosphatase 41 L Total Protein 5.9 #L Albumin 3.1 #L Globulin 2.80 Albumin/Globulin Ratio 1.10 Medications Medications Current Medications Amlodipine Besylate (Norvasc) 10 mg DAILY PO Last administered on 07/12/17 09: 15; Admin Dose 10 MG; Start 07/11/17 at 09:00 Aspirin (Halfprin) 81 mg DAILY PO Last administered on 07/12/17 09:14; Admin Dose 81 MG; Start 07/11/17 at 09:00 Hydralazine HCl (Apresoline) 50 mg Q8 PO Last administered on 07/12/17 05:39; Admin Dose 50 MG; Start 07/11/17 at 06:00 Levothyroxine Sodium 88 mcg 88 mcg DAILY@06 PO Last administered on 07/12/17 05:40; Admin Dose 88 MCG; Start 07/11/17 at 06:00 Ceftriaxone Sodium 50 ml @ 100 mls/hr Q24H IVPB Last administered on 23:02; Admin Dose 100 MLS/HR; Start 07/10/17 at 23:30 Azithromycin (Zithromax 500mg/ NS (Pmx)) 250 ml @ 250 mls/hr Q24H IVPB Last administered on 07/11/17 22:29; Admin Dose 250 MLS/HR; Start 07/10/17 at 23:00 Acetaminophen (Tylenol Tab) 650 mg Q4H PRN PO PAIN AND OR ELEVATED TEMP; Start 07/10/17 at 22:30 Ondansetron HCl (Zofran Inj) 4 mg Q4H PRN IV NAUSEA AND/OR VOMITING; Start 08/16 at 22:30 Morphine Sulfate (morphine) 2 mg Q2H PRN IV pain; Start 07/10/17 at 22:30 Enoxaparin Sodium (Lovenox) 40 mg DAILY SC Last administered on 07/12/17 09:18 ; Admin Dose 40 MG; Start 07/11/17 at 09:00 Tramadol HCl 50 mg 50 mg Q6H PRN PO PAIN Last administered on 07/11/17 21:17; Admin Dose 50 MG; Start 07/11/17 at 13:00 Sodium Chloride (NS) 1,000 ml @ 100 mls/hr Q10H IV Last administered on 12:17; Admin Dose 100 MLS/HR; Start 07/12/17 at 12:30 MOY DAMON Jul 12, 2017 13:39
[2017-07-12] MEDS: FAMOTIDINE 20 MG TAB PO SCH ×2 (14:55→21:15)
[2017-07-12] MEDS: NEUTRA-PHOS 250 MG PACKET PO SCH ×2 (14:56→21:15)
[2017-07-12] MEDS: BENAZEPRIL 40 MG TAB PO SCH (14:56)
[2017-07-12] MEDS: AZITHROMYCIN 500MG/NS (PMX) 250 ML IVPB SCH (22:00)
[2017-07-13] VITALS (9 sets, daily range): BP systolic 115–165; BP diastolic 69–77; PULSE 66–81; RESP 18–19
[2017-07-13] MEDS: CEFTRIAXONE 1 GM/50 ML (PMX) 50 ML IVPB SCH (00:07)
[2017-07-13] MEDS: LEVOTHYROXINE 88 MCG TAB PO SCH (05:56)
[2017-07-13 06:52] LABS: ABNORMAL IP MESSAGE 1; BASOPHIL # 0.1 10^3/ul (0.0-0.1); BASOPHILS % 0.5 % (0.0-2.0); EOSINOPHILS # 0.1 10^3/ul (0.0-0.5); HEMATOCRIT 33.9 % (37.0-47.0); HEMOGLOBIN 11.6 g/dl (12.0-16.0); LYMPHOCYTES # 2.3 10^3/ul (0.8-2.9); LYMPHOCYTES % 15.4 % (15.0-51.0); MEAN CORPUSCULAR HEMOGLOBIN 29.9 pg (29.0-33.0); MEAN CORPUSCULAR HGB CONC 34.2 g/dl (32.0-37.0); MEAN CORPUSCULAR VOLUME 87.4 fl (82.0-101.0); MONOCYTE # 1.7 10^3/ul (0.3-0.9); MONOCYTES % 11.4 % (0.0-11.0); PLATELET COUNT 465 10^3/UL (140-415); POSITIVE DIFF @See below; RED BLOOD COUNT 3.88 10^6/ul (4.20-5.40); RED CELL DISTRIBUTION WIDTH 13.7 % (11.5-14.5); WHITE BLOOD COUNT 14.7 10^3/ul (4.8-10.8)
[2017-07-13 07:21] LABS: PHOSPHORUS 2.4 mg/dl (2.5-4.9)
[2017-07-13 07:23] LABS: CALCIUM 8.6 mg/dl (8.4-10.2); CREATININE 0.71 mg/dl (0.44-1.00); POTASSIUM 3.9 mmol/L (3.5-5.1)
[2017-07-13] MEDS: FAMOTIDINE 20 MG TAB PO SCH (09:23)
[2017-07-13] MEDS: BENAZEPRIL 40 MG TAB PO SCH (09:23)
[2017-07-13] MEDS: AMLODIPINE 10 MG TAB PO SCH (09:23)
[2017-07-13] MEDS: ASPIRIN (EC) 81 MG TAB PO SCH (09:23)
[2017-07-13] MEDS: NEUTRA-PHOS 250 MG PACKET PO SCH ×2 (09:24→12:30)
[2017-07-13] MEDS: ENOXAPARIN 40 MG/0.4 ML SYG SC SCH (09:27)
[2017-07-13] MEDS: SOD CHLORIDE 0.9% 1,000 ML IV SCH ×2 (09:29→18:30)
[2017-07-13] MEDS ORDERED: AZITHROMYCIN 250 MG TAB PO SCH (09:30)
--- NOTE | 2017-07-13 13:01 | PN ---
Date/Time of Note Date/Time of Note DATE: 07/13/17 TIME: 12:56 Assessment/Plan VTE Prophylaxis VTE Prophylaxis Intervention: SCD's Lines/Catheters IV Catheter Type (from [facility]): Peripheral IV Urinary Cath still in place: No Assessment/Plan Assessment/Plan 82-year-old female with: 1. Severe symptomatic hyponatremia, sodium at 105 on admission, likely secondary to hypovolemia, patient was on multiple medications including diuretics and she may have an underlying pneumonia. She has been on IV fluids and sodium has risen appropriately up to 130 today. Continue current IV fluids. TFTs slightly abnormal but patient on Synthroid unclear if she was compliant with it before. Continue current dosing and repeat thyroid function testing in 4-6 weeks. Continue physical therapy likely to need [facility] short-term. Blood pressure controlled 2. Right lower lobe infiltrate, pneumonia, likely community-acquired pneumonia , therefore agree with azithromycin and Rocephin. Lactic acid within normal, Discharge plan to SNF today with Azithromycin p.o. x 3 more days and Rocephin IV for 3 more days for community-acquired pneumonia 3. ? UTI, follow-up on urine cultures negative. 4. Hypertension: Continue current Norvasc and hydralazine. Atenolol has been discontinued due to episodes of bradycardia down to 49 overnight. Continue ENRRIQUE inhibitors since renal function within normal, only use hydralazine as needed. Blood pressure much better controlled now. 5. Hypothyroidism, status post thyroidectomy at age 66: Slightly abnormal TFTs , continue current dose of Synthroid and recheck TFTs in 4-6 weeks. 6. Mild rhabdomyolysis: Likely secondary to fall at home, patient total CK is trending down. Encourage po fluids at SNF Renal function within normal. Prophylaxis: DVT prophylaxis with Lovenox. Pepcid for GI prophylaxis Disposition: Discharge plan to SNF today if bed available. Subjective 24 Hr Interval Summary Free Text/Dictation Patient doing better today, electrolytes much improved with potassium within normal, magnesium within normal, sodium up to 130. Total CK is trending down appropriately. She is tolerating p.o. Physical therapy has seen her. Her white blood cell count has been slightly elevated but patient is being treated for community-acquired pneumonia with oral chest 3 more days, she is afebrile and all her cultures are negative. Plan is to discharge her to [facility] facility to finish up her Rocephin course along with physical therapy prior to final discharge to home hopefully with home health from penitentiary facility. Exam/Review of Systems Vital Signs Vitals Vital Signs Date Time Temp Pulse Resp B/P Pulse Ox O2 Delivery O2 Flow Rate FiO2 07/13/17 12:30 71 07/13/17 12:09 98.6 19 165/75 96 07/10/17 19:30 Room Air 07/10/17 12:35 2 Intake and Output 07/12/17 07/12/17 07/13/17 15:00 23:00 07:00 Intake Total 1900 ml 1050 ml Balance 1900 ml 1050 ml Exam Constitutional: alert, oriented, well developed Respiratory: clear to auscultation, normal air movement Cardiovascular: nl pulses, regular rate and rhythm Gastrointestinal: non-tender, soft Musculoskeletal: nl extremities to inspection, other (no edema, clubbing or cyanosis ) Neurological: CARRIER ASSOCIATE II-XII intact, nl mental status, nl speech, other ( generalized weakness ) Results Result Diagram: 07/13/17 0637 07/13/17 0637 Results 24 hrs Laboratory Tests Test 07/13/17 06:37 White Blood Count 14.7 H Red Blood Count 3.88 L Hemoglobin 11.6 L Hematocrit 33.9 L Mean Corpuscular Volume 87.4 Mean Corpuscular Hemoglobin 29.9 Mean Corpuscular Hemoglobin Concent 34.2 Red Cell Distribution Width 13.7 Platelet Count 465 H Mean Platelet Volume 9.0 Neutrophils % 71.0 Lymphocytes % 15.4 Monocytes % 11.4 H Eosinophils % 1.0 Basophils % 0.5 Nucleated Red Blood Cells % 0.0 Neutrophils # (Manual) 10.4 H Lymphocytes # 2.3 Monocytes # 1.7 H Eosinophils # 0.1 Basophils # 0.1 Nucleated Red Blood Cells # 0.0 Sodium Level 130 L Potassium Level 3.9 Chloride Level 99 Carbon Dioxide Level 23 Anion Gap 12 Blood Urea Nitrogen 4 L Creatinine 0.71 Glucose Level 114 Calcium Level 8.6 Phosphorus Level 2.4 L Magnesium Level 2.0 Creatine Kinase 395 #H Medications Medications Current Medications Amlodipine Besylate (Norvasc) 10 mg DAILY PO Last administered on 07/13/17 09: 23; Admin Dose 10 MG; Start 07/11/17 at 09:00 Aspirin (Halfprin) 81 mg DAILY PO Last administered on 07/13/17 09:23; Admin Dose 81 MG; Start 07/11/17 at 09:00 Levothyroxine Sodium 88 mcg 88 mcg DAILY@06 PO Last administered on 07/13/17 05:56; Admin Dose 88 MCG; Start 07/11/17 at 06:00 Ceftriaxone Sodium (Rocephin) 50 ml @ 100 mls/hr Q24H IVPB Last administered on 07/13/17 00:07; Admin Dose 100 MLS/HR; Start 07/10/17 at 23:30 Acetaminophen (Tylenol Tab) 650 mg Q4H PRN PO PAIN AND OR ELEVATED TEMP; Start 07/10/17 at 22:30 Ondansetron HCl (Zofran Inj) 4 mg Q4H PRN IV NAUSEA AND/OR VOMITING; Start 08/16 at 22:30 Morphine Sulfate (morphine) 2 mg Q2H PRN IV pain Last administered on 19:34; Admin Dose 2 MG; Start 07/10/17 at 22:30 Enoxaparin Sodium (Lovenox) 40 mg DAILY SC Last administered on 07/13/17 09:27 ; Admin Dose 40 MG; Start 07/11/17 at 09:00 Tramadol HCl 50 mg 50 mg Q6H PRN PO PAIN Last administered on 07/11/17 21:17; Admin Dose 50 MG; Start 07/11/17 at 13:00 Sodium Chloride (NS) 1,000 ml @ 100 mls/hr Q10H IV Last administered on 09:29; Admin Dose 100 MLS/HR; Start 07/12/17 at 12:30 Sodium Phosphate (Neutra-Phos) 500 mg TID PO Last administered on 07/13/17 12: 30; Admin Dose 500 MG; Start 07/12/17 at 14:30 Famotidine (Pepcid) 20 mg BID PO Last administered on 07/13/17 09:23; Admin Dose 20 MG; Start 07/12/17 at 13:30 Hydralazine HCl (Apresoline) 50 mg Q8 PRN PO ELEVATED BLOOD PRESSURE; Start 10/16 at 14:00 Benazepril HCl (Lotensin) 40 mg DAILY PO Last administered on 07/13/17 09:23; Admin Dose 40 MG; Start 07/12/17 at 14:00 Azithromycin (Zithromax) 250 mg DAILY PO Last administered on 07/13/17t 09:43; Admin Dose 250 MG; Start 07/13/17 at 09:30 MOY DAMON Jul 13, 2017 13:01
--- NOTE | 2017-07-13 13:09 | PDOCDIS ---
Discharge Instructions CONDITION Patient Condition: Stable HOME CARE INSTRUCTIONS: Special Diet: SOFT ACTIVITY: Activity Restrictions: No Restrictions FOLLOW UP/APPOINTMENTS Follow-up Plan Follow-up with primary care physician within 1-2 weeks [facility] patient needs her BMP and sodium level followed up within 48-72 hours MOY DAMON Jul 13, 2017 13:09
== END 2017-07-13 18:39 | DRG 640 ==
LOC: E/R 11:52 → TEL 16:16
PROVIDERS: ADMIT Legal Medicine; ATTEND Legal Medicine
DX: E87.1 Hypo-osmolality and hyponatremia (principal); J18.9 Pneumonia, unspecified organism; E86.0 Dehydration; E87.2 Acidosis; M62.82 Rhabdomyolysis; R00.1 Bradycardia, unspecified; N39.0 Urinary tract infection, site not specified; I10 Essential (primary) hypertension; E89.0 Postprocedural hypothyroidism; E86.1 Hypovolemia; Y95 Nosocomial condition; Z79.82 Long term (current) use of aspirin
CPT/HCPCS: 36415; 70450; 71010; 72072; 72100; 72125; 72170; 80048; 80053; 81001; 82550; 82553; 83605; 83735; 84100; 84295; 84439; 84443; 84484; 85025; 85610; 85730; 87040; 87086; 92610; 93005; 96374; 96375; 96376; 97116; 97162; 97530; J0456; J0692; J0696; J1650; J2270; J2405; J3370; J3475; J3480; J7030; J7050; P9612

== ENCOUNTER 2018-05-25 23:34 | Inpatient (IN) | END 2018-05-30 16:00 | disposition home health service (06) | DRG 378 ==